=== PATIENT | male | born 1960 | race Caucasian/White ===

== ENCOUNTER 2020-04-22 12:46 | Emergency (ER) | payer BC, SELFPAY ==
--- NOTE | 2020-04-22 13:07 | ED.EYEPROB ---
HPI - Eye Problem General Chief complaint: Eye Problems Stated complaint: right eye pain Source: patient and RN notes reviewed Mode of arrival: ambulatory Limitations: no limitations History of Present Illness HPI Narrative: This is a 59-year-old white male who presented to urgent care today with complaints of right eye pain. 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 The symptoms that he is displaying today is a classic sign of his condition worsened. According to patient he woke up yesterday with a itchy eye he also noted that there seems to be a haze over the right eye. Patient notes that he woke up this morning with discharge coming from the right eye he also noted that it was swollen and red and. Patient also noted that it feels like something is in his eye but he denies any foreign objects in his eyes. Patient noted that at home he did rinse his eye with saline and use dry eye to relieve the dryness in his right eye. Patient was prescribed viroptic and has ran out of his prescription. Patient's visual acuity without any abnormalities. The patient denies SOB, CP, palpitation, extremity numbness, lightheadedness, dizziness, constipation, diarrhea, chills, or fever. Related Data Home Medications Medication Instructions Recorded Confirmed cetirizine [Zyrtec] 10 mg PO DAILY 04/22/20 04/22/20 Allergies Allergy/AdvReac Type Severity Reaction Status Date / Time SULFA EYE GTT Allergy Intermediate Other Uncoded 04/22/20 13:02 Review of Systems Review of Systems: All systems reviewed & are unremarkable except as noted in HPI and below (10 point system) PMFSH Social History Social History Gender identity (if verbalized by the patient): Male Exam Narrative: Exam Narrative: GENERAL: This is a well-nourished, well-developed patient, in no apparent distress. HEAD: normocephalic, atraumatic. EYES: Right eye edematous and erythematous with yellowish discharge EARS: External ears normal, auditory canals clear and without drainage, TMs normal without perforation. Hearing grossly intact. NOSE: External nose normal with no obvious nasal discharge, nares without redness, no rhinorrhea. THROAT: Mucous membranes moist, posterior pharynx clear. NECK: Neck supple, non-tender without lymphadenopathy, masses or thyromegaly. CARDIOVASCULAR: Regular rate and rhythm without murmurs, gallops, or rubs. RESPIRATORY: Clear to auscultation. Breath sounds equal bilaterally. No wheezes, rales, or rhonchi. GASTROINTESTINAL: Abdomen soft, non-tender, nondistended. Bowel sounds are active. No hepato-splenomegaly, or palpable masses. No guarding. SKIN: warm, intact with no suspicious lesions or rash, good texture and turgor. NEURO: awake, alert, and oriented to person, place and time. There were no obvious focal neurologic abnormalities. Steady gait EXTREMITIES: Normal range of motion. No edema. No calf tenderness. Negative Homans sign bilaterally. BACK: Nontender without deformity or crepitance. No flank tenderness. Course Vital Signs Vital signs: Vital Signs Temperature 99.3 F 04/22/20 13:17 Pulse Rate 66 04/22/20 13:17 Respiratory Rate 18 04/22/20 13:17 Blood Pressure 168/79 H 04/22/20 13:17 Pulse Oximetry 99 04/22/20 13:17 Temperature 99.3 F 04/22/20 13:17 Pulse Rate 66 04/22/20 13:17 Respiratory Rate 18 04/22/20 13:17 Blood Pressure 168/79 H 04/22/20 13:17 Pulse Oximetry 99 04/22/20 13:17 MDM - Eye Problem Differential Diagnosis Differential diagnosis: Likely corneal abrasion, conjunctivitis and acute iritis Discharge Plan Discharge Clinical Impression: Herpes keratitis of right eye Patient Disposition: Home, Self-Care Condition: Stable Instructions: Antibiotic Form Additional Instructions: Cold compresses to the eyes for comfort May need warm compresses to remove debris in the morning When cleaning the ey
[2020-04-22 13:17] VITALS: BP 168/79; PULSE 66; RESP 18; TEMP 37.4; O2SAT 99
== END 2020-04-22 13:26 | disposition home or self-care (01) ==
PROVIDERS: Emergency Provider Nurse Practitioner
DX: B00.52 Herpesviral keratitis (principal)
CPT/HCPCS: 99213; G0463

== ENCOUNTER 2022-11-25 09:37 | Emergency (ER) | payer BC, OTHER, SELFPAY ==
[2022-11-25] VITALS (8 sets, daily range): BP systolic 163–190; BP diastolic 83–101; PULSE 55–65; RESP 18–20; TEMP 36.4; O2SAT 96–98
--- NOTE | ~2022-11-25 | XR_ITS ---
EXAMINATION: XR chest 2V DATE: 11/25/2022 10:25 INDICATION: Hypertension TECHNIQUE: PA and lateral views of the chest are obtained. COMPARISON: None available FINDINGS: The lungs are free of acute opacities. No pleural effusion or pneumothorax. The cardiomedia stinal silhouette is normal. There are bridging osteophytes at multiple levels in the spine, consiste nt with diffuse idiopathic skeletal hyperostosis (DISH). IMPRESSION: 1. No acute cardiopulmonary abnormality. Reviewed, dictated and finalized at location B.
--- NOTE | 2022-11-25 09:49 | ED.GENADULT ---
HPI - General Adult General Chief complaint: Unspecified Stated complaint: high blood pressure Time Seen by Provider: 11/25/22 09:45 Source: patient and family Mode of arrival: ambulatory Limitations: no limitations History of Present Illness HPI narrative: patient is a 62-year-old male with left chest tingling and numbness ( patient hurt his left shoulder and left chest over the weekend ) starting this morning with elevated blood pressure. Patient went to his work nurse and they checked his pressure and it was elevated 180s systolic and further rechecked again at [facility] and it was elevated again 180s systolic. He came to the ER upon advice from the pharmacist. No headache or blurry vision. No chest pain or shortness of breath. Family history of PE and brain aneurysm and CAD. Onset (ago): hour(s) Radiation: non-radiation Severity: mild Relieving factors: none Exacerbating factors: none Associated symptoms: denies other symptoms Treatments prior to arrival: none Related Data Home Medications Medication Instructions Recorded Confirmed cetirizine 10 mg capsule (Zyrtec) 10 mg PO DAILY 04/22/20 11/25/22 Allergies Allergy/AdvReac Type Severity Reaction Status Date / Time SULFA EYE GTT Allergy Intermediate Other Uncoded 04/22/20 13:02 Review of Systems Genitourinary: Genitourinary: Reports no additional male genitourinary complaints Musculoskeletal: Musculoskeletal: Reports no additional musculoskeletal complaints Integumentary/Breasts: Skin/Breast: Reports system reviewed and no additional complaints, except as docu Neurologic: Reports system reviewed and no additional complaints, except as documented Psychiatric: Psychiatric: Reports no additional psychiatric complaints Endocrine: Endocrine: Reports no additional endocrine complaints Hematologic/Lymphatic: Hematologic/Lymphatic: Reports no additional hematologic/lymphatic complaints Allergic/Immunologic: Allergic/Immunologic: Reports no additional allergic/immunologic complaints PMFSH Social History Social History Gender identity (if verbalized by the patient): Male Exam Const: General: healthy appearing Nutritional Appearance: well nourished Orientation/consciousness: patient oriented x3 HENMT: Head: normal to inspection Ears: external ears normal Face/Nose/Sinus: Normal external nose present Eyes: Conjunctivae: conjunctivae normal Pupils: Equal, round and reactive pupils present EOM: EOMs intact bilaterally Neck: Neck: normal visual inspection Chest: Chest palpation & inspection: normal inspection of the chest Resp: Effort & Inspection: normal respiratory effort Auscultation: clear to auscultation bilaterally Cardio: Rate: regular rate Rhythm: regular rhythm Heart sounds: no murmurs GI: Inspection: non-distended GI Palp: Yes Soft to palpation, No Tenderness to palpation present (GI), No Guarding due to palpation present (GI) and No Rigid due to palpation Auscultation: normal bowel sounds : General: Yes bladder normal to palpation Back/Spine/Pelvis: Back: no CVA tenderness Skin: General skin exam: normal color Rashes: no rashes Wounds: no wounds Neuro: General: patient oriented x3, moves all extremities, no meningeal signs, no focal motor deficits and CN's II-XI intact bilaterally Extrem: General: normal to inspection Psych: Mental Status: mental status grossly normal Affect: normal affect Attitude: cooperative Course Vital Signs Vital signs: Vital Signs Temperature 36.4 C 11/25/22 09:37 Pulse Rate 65 11/25/22 09:37 Respiratory Rate 18 11/25/22 09:37 Blood Pressure 190/101 H 11/25/22 09:37 Pulse Oximetry 98 11/25/22 09:37 Oxygen Delivery Room Air 11/25/22 09:37 Temperature 36.4 C 11/25/22 09:37 Pulse Rate 55 L 11/25/22 10:45 Respiratory Rate 20 11/25/22 10:45 Blood Pressure 163/83 H 11/25/22 10:45 Pulse Oximetry 96 09/0
--- NOTE | 2022-11-25 09:54 | ECG_ITS ---
Measurements Intervals [place] Rate: 59 P: 47 IA: 164 QRS: 17 QRSD: 101 T: 26 QT: 434 QTc: 430 Interpretive Statements SINUS BRADYCARDIA NONSPECIFIC ST & T-WAVE ABNORMALITY- INFERIOR LEADS BORDERLINE ECG NO PREVIOUS ECG AVAILABLE FOR COMPARISON Electronically Signed On 11-25-2022 10:42:05 CDT by Daquan Cabrales D.O.
[2022-11-25 10:10] LABS: Basophils Absolute Auto 0.04 K/mm3 (0.00-0.10); Basophils Percent Auto 0.6 % (0.0-1.0); Eosinophils Absolute Auto 0.19 K/mm3 (0.02-0.50); Eosinophils Percent Auto 2.8 % (1.0-6.0); Hematocrit 40.5 % (40.0-54.0); Hemoglobin 14.1 g/dL (14.0-18.0); Immature Granulocyte Absolute 0.01 K/mm3 (0.00-0.00); Immature Granulocyte Percent A 0.1 % (0.0-0.0); Lymphocytes Absolute Auto 1.72 K/mm3 (1.10-4.50); Lymphocytes Percent Auto 25.5 % (18.0-42.0); Mean Corpuscular HGB Conc 34.8 g/dL (32.0-36.0); Mean Corpuscular Hemoglobin 30.6 pg (27.0-31.0); Mean Corpuscular Volume 87.9 fL (78.0-102.0); Mean Platelet Volume 11.4 fl (8.7-11.0); Monocytes Absolute Auto 0.46 K/mm3 (0.10-0.90); Monocytes Percent Auto 6.8 % (2.0-11.0); Neutrophils Absolute Auto 4.3 K/mm3 (1.7-7.2); Neutrophils Percent Auto 64.2 % (50.0-70.0); Platelet Count Result 245 K/mm3 (150-420); Red Blood Count 4.61 M/mm3 (4.70-6.10); Red Cell Distribution Width 12.9 % (11.6-14.4); White Blood Count 6.7 K/mm3 (4.8-10.8)
[2022-11-25 10:25] LABS: D Dimer 0.33 mg/L (0.19-0.50)
[2022-11-25] MEDS: LOSARTAN POTASSIUM 50 MG TABLET PO (10:26)
[2022-11-25 10:27] LABS: Alanine Aminotransferase 41 U/L (16-63); Albumin Level 3.7 g/dL (3.4-5.0); Alkaline Phosphatase 143 U/L (46-116); Anion Gap 11 mmol/L (8-16); Aspartate Amino Transferase 16 U/L (15-37); Bilirubin,Total 0.4 mg/dL (0.00-1.00); Blood Urea Nitrogen 17 mg/dL (7-18); Calcium 8.8 mg/dL (8.5-10.1); Carbon Dioxide 25 mmol/L (21-32); Chloride 104 mmol/L (98-108); Estimated CRCL calculation 83 ml/min; Estimated Glomerular Filt Rate > 60; Glucose 173 mg/dL (70-99); Osmolality Calculated 295 mOsm/kg (285-295); Potassium 3.4 mmol/L (3.5-5.1); Sodium 140 mmol/L (136-145); Total Protein 7.4 g/dL (6.4-8.2); Troponin I 10.9 ng/L (0.00-60.4)
[2022-11-25] MEDS: POTASSIUM CHLORIDE 20 MEQ ER TABLET PO (10:40)
== END 2022-11-25 10:52 | disposition home or self-care (01) ==
PROVIDERS: Emergency Provider Emergency Medicine
DX: I10 Essential (primary) hypertension (principal)
CPT/HCPCS: 36415; 71046; 80053; 84484; 85025; 85380; 93005; 99284; A9270

== ENCOUNTER 2023-05-15 08:11 | Outpatient (CLI) | payer BC, OTHER, SELFPAY ==
--- NOTE | ~2023-05-15 | US_ITS ---
Limited Abdominal Sonogram: Real-time sonographic imaging of the right upper quadrant was performed. Clinical History: Hypoxia prostate Findings: The liver appears mildly echogenic with no evidence of mass lesion or bile duct dilatation . Main portal vein demonstrates normal direction of flow. The gallbladder is well distended, and appe ars normal with no evidence of gallstone or wall thickening. The common bile duct measures 5 mm. The visualized pancreas, aorta, and IVC are unremarkable. Impression: Diffuse fatty infiltration of liver. Reviewed, dictated and finalized at location M. NE AGENT Impression: Diffuse fatty infiltration of liver.
== END 2023-05-15 08:12 | disposition home or self-care (01) ==
LOC: CHSIMG 08:13
PROVIDERS: PCP Nurse Practitioner; Visit Provider Nurse Practitioner
DX: R74.8 Abnormal levels of other serum enzymes (principal); K76.0 Fatty (change of) liver, not elsewhere classified
CPT/HCPCS: 76705